=== PATIENT | female | born 1995 | race Caucasian/White ===

== ENCOUNTER 2016-09-24 13:18 | Inpatient (IN) | payer BC, OTHER ==
[2016-09-24] MEDS ORDERED: RINGER'S SOLUTION,LACTATED 1,000 ML IV ONE (13:40)
[2016-09-24] MEDS ORDERED: DEXTROSE 5%-LACTATED RINGERS 1,000 ML IV PRN (13:40)
[2016-09-24] MEDS ORDERED: ONDANSETRON HCL/PF 2 MG/ML VIAL IV PRN ×2 (13:40→18:33)
[2016-09-24] MEDS ORDERED: OXYTOCIN/DEXTROSE 5%-WATER 30 UNITS/500 ML BAG IV ONE ×2 (13:40→19:51)
[2016-09-24] MEDS ORDERED: LIDOCAINE HCL 50 ML VIAL PERI PRN (13:40)
[2016-09-24] MEDS ORDERED: BUTORPHANOL TARTRATE 2 MG/ML VIAL IV PRN (16:20)
--- NOTE | 2016-09-24 17:42 | OR ---
Operative Report - Dictated Report Narrative: Patient received relief with Stadol IV 1 Vital signs stable. Pitocin at 9 mu/min. FHT: 140 baseline, reassuring Contractions q 2-3 min Cervix: 6/75/-2, AROM clear Impression: Intrauterine at 37-3/7 weeks in labor Plan: Continue present plan
[2016-09-24] MEDS ORDERED: BUPIVACAINE HCL/0.9 % NACL/PF 250 ML EP PRN (18:33)
[2016-09-24] MEDS ORDERED: NALOXONE HCL 1 MG/1 ML SYRG IV PRN (18:33)
[2016-09-24] MEDS ORDERED: fentaNYL CITRATE/PF 50 MCG/ML AMPUL IT SCH (18:45)
[2016-09-24] MEDS ORDERED: HYDROCORTISONE 30 APPL TUBE TP PRN (19:51)
[2016-09-24] MEDS ORDERED: SENNOSIDES 8.6 MG TABLET PO PRN (19:51)
[2016-09-24] MEDS ORDERED: BISACODYL 10 MG SUPP.RECT RC PRN (19:51)
[2016-09-24] MEDS ORDERED: GLYCERIN/WITCH HAZEL LEAF 40 APPL BOX TP PRN (19:51)
[2016-09-24] MEDS ORDERED: BENZOCAINE/MENTHOL 81 SPRAY CAN TP PRN (19:51)
[2016-09-24] MEDS ORDERED: oxyCODONE HCL/ACETAMINOPHEN 1 TAB TABLET PO PRN ×2 (19:51)
--- NOTE | 2016-09-24 19:56 | OR ---
Operative Report - Dictated Report Narrative: Spontaneous vaginal delivery of viable female at 1933 on 09/24/2016 with Apgars 8 and 9, weighing 3647 g in ELVA position. Tight nuchal cord 1 reduced on perineum. Cord clamping delayed approximately 1 minute Placenta delivered complete, intact, with three vessel cord Estimated blood loss: 150 mL Lacerations: Superficial clitoral hein laceration (10 mm) no repair History for MU Definition: * The number of deliveries resulting in a live the patient experienced prior to current hospitalization * The previous delivery of live twins or any live multiple gestation is considered one live event. *If primagravida or nulliparous is documented select zero for the number of previous live births. Live Events: 1
[2016-09-24] MEDS: IBUPROFEN 800 MG TABLET PO PRN (21:24)
[2016-09-24] MEDS: DOCUSATE SODIUM 100 MG CAPSULE PO SCH (21:24)
[2016-09-25] MEDS: FERROUS SULFATE 325 MG TABLET PO SCH (08:16)
[2016-09-25] MEDS: PRENATAL VITS96/IRON FUM/FOLIC 1 TAB TABLET PO SCH (08:16)
[2016-09-25] MEDS: CITALOPRAM HYDROBROMIDE 10 MG TABLET PO SCH (08:17)
[2016-09-25] MEDS: DOCUSATE SODIUM 100 MG CAPSULE PO SCH ×2 (08:17→21:38)
[2016-09-25] MEDS: IBUPROFEN 800 MG TABLET PO PRN ×2 (12:15→23:29)
--- NOTE | 2016-09-25 17:11 | PN ---
Subjective - Date and Time Seen Date: 09/25/16 Time: 17:10 Objective - Vitals Vitals: Last Vital Signs Temp 35.9 C L 09/25/16 07:56 Pulse 78 09/25/16 07:56 Resp 20 09/25/16 07:56 BP 117/62 09/25/16 07:56 Pulse Ox 98 09/25/16 07:56 Patient denies complaints. Lochia wnl Abdomen - soft, nontender Uterus - firm, at umbilicus - 1 No calf tenderness Impression: day #1 - s/p spontaneous vaginal delivery. Plan: Continue routine care
[2016-09-26] MEDS: CITALOPRAM HYDROBROMIDE 10 MG TABLET PO SCH (08:45)
[2016-09-26] MEDS: PRENATAL VITS96/IRON FUM/FOLIC 1 TAB TABLET PO SCH (08:45)
[2016-09-26] MEDS: DOCUSATE SODIUM 100 MG CAPSULE PO SCH ×2 (08:45→21:58)
[2016-09-26] MEDS: FERROUS SULFATE 325 MG TABLET PO SCH (08:45)
[2016-09-26] MEDS: IBUPROFEN 800 MG TABLET PO PRN ×2 (08:47→18:40)
--- NOTE | 2016-09-26 15:39 | PN ---
Subjective - Date and Time Seen Date: 09/26/16 Time: 15:38 Objective - Vitals Vitals: Last Vital Signs Temp 35.9 C L 09/26/16 14:05 Pulse 89 09/26/16 14:05 Resp 16 09/26/16 14:05 BP 117/78 09/26/16 14:05 Pulse Ox 97 09/26/16 14:05 Patient denies complaints. Lochia wnl Abdomen - soft, nontender Uterus - firm, at umbilicus - 2 No calf tenderness Impression: day #2 - s/p spontaneous vaginal delivery. Anxiety/ depression-stable Plan: Routine discharge instructions. Call for signs or symptoms of depression.
[2016-09-26 19:18] VITALS: BP 117/59
== END 2016-09-26 23:55 | disposition home or self-care (01) | DRG 775 ==
LOC: OB 13:18
PROVIDERS: ADMIT Obstetrics & Gynecology; ATTEND Obstetrics & Gynecology
PROC: 10E0XZZ Delivery of Products of Conception, External Approach (ICD-10-PCS; principal; 2016-09-24)
PROC: 10907ZC Drainage of Amniotic Fluid, Therapeutic from Products of Conception, Via Natural or Artificial Opening (ICD-10-PCS; 2016-09-24)
PROC: 4A1HXCZ Monitoring of Products of Conception, Cardiac Rate, External Approach (ICD-10-PCS; 2016-09-24)
DX: O69.1XX0 Labor and delivery complicated by cord around neck, with compression, not applicable or unspecified (principal); O99.344 Other mental disorders complicating childbirth; F41.9 Anxiety disorder, unspecified; F32.9 Major depressive disorder, single episode, unspecified; Z3A.37 37 weeks gestation of pregnancy; Z37.0 Single live birth